=== PATIENT | female | born 1955 | race Caucasian/White ===

== ENCOUNTER 2022-09-22 16:35 | Outpatient (CLI) | payer MEDICARE, BC | END 2022-09-22 16:36 | disposition home or self-care (01) | LOC: CSHRAD 16:35 | PROVIDERS: ATTEND Family Medicine | DX: S99.921A Unspecified injury of right foot, initial encounter (principal); S82.61XA Displaced fracture of lateral malleolus of right fibula, initial encounter for closed fracture ==